=== PATIENT | male | born 1995 ===

== ENCOUNTER 2018-06-29 19:35 | Inpatient (IN) ==
[2018-06-30] MEDS ORDERED: Acetaminophen 325 MG Tablet PO PRN (03:39)
[2018-06-30] MEDS ORDERED: LORazepam 1 MG Tablet PO PRN (03:39)
[2018-06-30] MEDS ORDERED: Aluminum/Magnesium/Simethacone Susp 30 ML UDC PO PRN ×2 (03:39→09:19)
--- NOTE | 2018-06-30 09:28 | P.HPPSY ---
Provisional Diagnosis Admission Date: June 30, 2018 01:15 [place] I.: Adjustment disorder with mixed disturbance of emotion and conduct Competence Certification of Person's Competence To Provide Express and Informed Consent I have personally examined Josh Gibson, a person being served at [facility] on, June 30, 2018 0923. Express and informed consent means consent voluntarily given in writing, by a competent person, after sufficient explanation and disclosure of the subject matter involved to enable the person to make a knowing and willful decision without any element of force, fraud, deceit, duress, or other form of constraint or coercion. This person is 18 years of age or older, is not now known to be incompetent to consent to treatment with a guardian advocate, and does not have a health care surrogate or proxy currently making medical treatment decisions. I have found this person to be one of the following: [xxxx] Competent to provide express and informed consent, as defined above, for voluntary admission to this facility and is competent to provide express and informed consent for treatment. He/she has the consistent capacity to make well reasoned, willful, and knowing decisions concerning his or her medical or mental health treatment. The person fully and consistently understands the purpose of the admission for examination/placement and is fully capable of personally exercising all rights assured under [place] Incompetent to provide express and informed consent to voluntary admission, and this is incompetent to provide express and informed consent to treatment. The person must be transferred to involuntary status and a petition for a guardian advocate filed with the Circuit Court. [] Refusing to provide express and informed consent to voluntary admission but is competent to provide express and informed consent for treatment. The person must be discharged or transferred to involuntary status. Form shall be completed within 24 hours of a person's arrival at the receiving facility and filed in the clinical record of each person: 1. Admitted on a voluntary basis 2. Permitted to provide express and informed consent to his/her own treatment 3. Allowed to transfer from involuntary to voluntary status 4. Prior to permitting a person to consent to his or her own treatment after having been previously found incompetent to consent to treatment. History of Present Illness Capacity: Has capacity History of Present Illness: Patient is a 23-year-old white male initially comes here under Garcia act from [facility]. Patient's Garcia act reviewed dated 06/28/2018 at 1935 hrs. that document reviewed states patient admits to being depressed and having suicidal thoughts with thoughts of setting himself on fire with pumping gas says she thought of getting some bleach and using it to take pills. Patient was seen screen that facility urine toxicology negative blood alcohol level negative. Patient was transferred here under a Garcia act. At the present time patient sitting quietly in his room on 2700 nurse Olivares present throughout session. Patient is a thin tall somewhat disheveled young white male. Gives a history of being from [place] coming down here to [place] within the past year or so it appears to try to make a new start. Is unable to find employment became homeless was trying to go [facility] back towards [facility]. It appears she is found to be very ruminative something of that nature did not want up in snf for 2 days and [facility] did not meet a woman there they drove together towards the [place] they ran out of gasoline.. He panhandles for money they had some gasoline and continued on the way we are not again then the woman decided she wanted to go back with her and the patient was abandoned at a gas station where he made the following statements is as mentioned above was Garcia acted a longer period. At the present time patient sitting quietly in his room on 27 nurse Olivares present throughout session patient alert oriented slender tall somewhat disheveled white male appears about his stated age is 4 somewhat anxious but overall calm and cooperative with me with poor to fair eye contact. He said he was upset by this woman leaving him and made those statements as above but he denied any suicidal homicidal ideation intent or plan said there is a just out of frustration. He acknowledges being from [place] and his father is there he has a 1-year-old baby boy there. He has good relationship with the baby's mother and leisure with the following though neither 1 of them have money to fund him transportation back to [place] which is physical. He denies any alcohol or drug use though he states he has done marijuana in the past. He denies any prior psychiatric contact hospitalization her psychotropic medications. He denies any significant medical or surgical problems he says he went through 10th grade does not have a GED has never had any significant employment. He states that his sister mental health issues in the family is mother was a substance abuser and somewhat depressed. His father did use alcohol. He denies any physical or sexual abuse as a child. At the present stomach feel patient does not meet Garcia act criteria lift the Garcia act. I see no indication for psychotropic medication at this time. Thus we will allow the patient to be discharged to himself. We will discuss with her counselors and discharge planners the possibility of finding funding to help him return to the [facility]. Otherwise we would have to refer him to the homeless coalition - Inpatient Certification I certify that the inpatient services were ordered in accordance with Medicare regulations governing the order. This includes certification that hospital inpatient services are reasonable and necessary and in the case of services not specified as inpatient-only under 42 CFR 419.22(n), that they are appropriately provided as inpatient services in accordance to with the 2-midnight benchmark under 43 CFR 412.3(e) I certify that inpatient psychiatric hospital services are medically necessary. Evaluation and treatment and/or diagnostic testing are expected to improve the patient's condition. The patient needs on a daily basis, active treatment furnished directly by or requiring the supervision of inpatient psychiatric facility personnel. Estimated Total Length of Stay (Days): 1 Plans for Post Hospital Care: Other Review of Systems All other systems reviewed negative except as stated in HPI PMFSH - History History Provided By: Patient - Tobacco History Second Hand Smoke Exposure: Yes Tobacco Use In Past 30 Days: Yes Smoking Status: Current every day smoker Tobacco Type: Cigarettes - Alcohol History How Often Do You Have a Drink Containing Alcohol: Monthly or less - Substance Use History Substance History: No History of Abuse - Substance Use Type Marijuana Route Used: Inhalation Frequency: advises he hasn't smoked in a while Last Used: cant remember Reason for Use: Calm Down - Travel History Recent Travel in the USA Within the Last 8 Weeks: No Recent Travel Out of the Country Within the Last 8 Weeks: No - Immunization History Tetanus Immunization: <5 Years Hx Influenza Vaccine This Season: No Quality Measures - Psychiatric History Psychological trauma history: Patient denies Violence risk to others in the last 6 months: Low Violence risk to self in the last 6 months: Low - Substance Abuse History Drug or alcohol use in the past 12 months: Patient states his used marijuana in the past - Patient Strengths Patient's strengths (minimum of 2): Patient verbal able access healthcare Medications and Allergies Active Medications: Active Medications Acetaminophen (Tylenol) 650 mg PO Q4H PRN PRN Reason: Pain 1-5 or Temp >101F Al Hydrox/Mg Hydrox/Simethicone (Mag-Al Plus Susp Liq) 30 ml PO Q6H PRN PRN Reason: DYSPEPSIA Al Hydrox/Mg Hydrox/Simethicone (Mag-Al Plus Susp Liq) 30 ml PO Q6H PRN PRN Reason: DYSPEPSIA Al Hydroxide/Mg Hydroxide (Milk Of Magnesia Liq) 30 ml PO DAILY PRN PRN Reason: CONSTIPATION Al Hydroxide/Mg Hydroxide (Milk Of Magnesia Liq) 30 ml PO Q12H PRN PRN Reason: Mild Constipation Diphenhydramine HCl (Benadryl) 50 mg PO HS PRN PRN Reason: INSOMNIA Nicotine (Habitrol 21 Mg Patch.24 Hr) 1 patch T-DERMAL DAILY SHU Patch Removal (Remove Old Patch) 1 each T-DERMAL HS SHU Allergies Allergy/AdvReac Type Severity Reaction Status Date / Time No Known Allergies Allergy Unverified 06/30/18 03:30 Exam Vital signs: Vital Signs 06/30/18 01:38 Temperature 97.8 F Pulse Rate 53 L Respiratory Rate 17 Blood Pressure 117/73 Pulse Oximetry 100 Intake & Output 06/29/18 06/30/18 06/30/18 18:59 06:59 18:59 Weight 86.4 kg Other: Weight On Admission 86.4 kg Narrative: Patient seen in his room with staff mentioned above he is in no acute distress, no respiratory distress, no complaints of chest pain no complaints of abdominal pain. Patient moving all 4 extremities without difficulty Mental Status Examination Appearance: Appropriate Consciousness: Alert Orientation: x4 Motor Activity: Normal gait Speech: Unremarkable Language: Adequate Fund of Knowledge: Adequate Attention and Concentration: Other Memory: Unremarkable (Fair) Mood: Other (Euthymic to somewhat restricted) Affect: Other (Slight decreased range and intensity) Thought Process & Associations: Intact Thought Content: Appropriate Hallucination Type: None Delusion Type: None Suicidal Ideation: No Suicidal Plan: No Suicidal Intention: No Homicidal Ideation: No Homicidal Plan: No Homicidal Intention: No Insight: Fair Judgment: Adequate (Fair) Assessment and Plan - Assessment (1) Adjustment disorder with mixed disturbance of emotions and conduct Code(s): F43.25 - Adjustment disorder with mixed disturbance of emotions and conduct Status: Acute - Plan Plan: Estimated LOS: [1 ] days At this time patient does not meet Garcia criteria lift Garcia act patient to be discharged from self, he denies suicidality homicidality voice or visions. Patient is homeless has no funding. He is attempting to return to his family that [facility]. He has his father there is a 1-year-old child and the child's mother. We will attempt to find funding to help him on his way there otherwise we will refer him through to the homeless coalition Justification for Continued Inpatient Stay: Patient to be discharged today Discharge Planning: Discharged from self either to the homeless coalition or if possible finding funding to help with bus trip to [place] Request Healthcare Surrogate/Guardian Advocate?: No
--- NOTE | 2018-06-30 11:00 | P.DSPSY ---
Psychiatry Discharge Summary Inpatient Psychiatric care?: Yes Advance Directives: No Mental Health Advance Directive: No Health Care Proxy: No - Admission Admission Date: June 30, 2018 01:15 - Admission Diagnosis (1) Adjustment disorder with mixed disturbance of emotions and conduct Code(s): F43.25 - Adjustment disorder with mixed disturbance of emotions and conduct Brief History: Patient is a 23-year-old white male initially comes here under Garcia act from [facility]. Patient's Garcia act reviewed dated 06/28/2018 at 1935 hrs. that document reviewed states patient admits to being depressed and having suicidal thoughts with thoughts of setting himself on fire with pumping gas says she thought of getting some bleach and using it to take pills. Patient was seen screen that facility urine toxicology negative blood alcohol level negative. Patient was transferred here under a Garcia act. At the present time patient sitting quietly in his room on 2700 nurse Elise present throughout session. Patient is a thin tall somewhat disheveled young white male. Gives a history of being from [place] coming down here to [place] within the past year or so it appears to try to make a new start. Is unable to find employment became homeless was trying to go from [facility] back towards [facility]. It appears she is found to be very ruminative something of that nature did not want up in penitentiary for 2 days and [facility] did not meet a woman there they drove together towards the [place] they ran out of gasoline.. He panhandles for money they had some gasoline and continued on the way we are not again then the woman decided she wanted to go back with her and the patient was abandoned at a gas station where he made the following statements is as mentioned above was Garcia acted a longer period. At the present time patient sitting quietly in his room on 27 nurse Elise present throughout session patient alert oriented slender tall somewhat disheveled white male appears about his stated age is 4 somewhat anxious but overall calm and cooperative with me with poor to fair eye contact. He said he was upset by this woman leaving him and made those statements as above but he denied any suicidal homicidal ideation intent or plan said there is a just out of frustration. He acknowledges being from [place] and his father is there he has a 1-year-old baby boy there. He has good relationship with the baby's mother and leisure with the following though neither 1 of them have money to fund him transportation back to [place] which is physical. He denies any alcohol or drug use though he states he has done marijuana in the past. He denies any prior psychiatric contact hospitalization her psychotropic medications. He denies any significant medical or surgical problems he says he went through 10th grade does not have a GED has never had any significant employment. He states that his sister mental health issues in the family is mother was a substance abuser and somewhat depressed. His father did use alcohol. He denies any physical or sexual abuse as a child. At the present stomach feel patient does not meet Garcia act criteria lift the Garcia act. I see no indication for psychotropic medication at this time. Thus we will allow the patient to be discharged to himself. We will discuss with her counselors and discharge planners the possibility of finding funding to help him return to the [facility]. Otherwise we would have to refer him to the homeless coalition Tobacco Use In Past 30 Days: Yes How Often Do You Have a Drink Containing Alcohol: Monthly or less Hospital Course: Please see above dictation under brief history. Patient does not meet Garcia criteria will lift Garcia act. Patient denies suicidality homicidality voice or visions. Is able contract to do no harm. Patient to be discharged to himself. It appears [employer] will be able to assist this man and getting transportation back to his home in [facility] his father will be able to meet him at the destination. - Discharge Discharge Date: 06/30/18 - Discharge Diagnosis (1) Adjustment disorder with mixed disturbance of emotions and conduct Code(s): F43.25 - Adjustment disorder with mixed disturbance of emotions and conduct Status: Acute Discharge Disposition: Home - Discharge Instructions Discharge Diet: Regular Diet Activities You Can Perform: Regular- No Restrictions - Discharge Time > 30 minutes Mental Status Examination Appearance: Appropriate Consciousness: Alert Orientation: x4 Motor Activity: Normal gait Speech: Unremarkable Language: Adequate Fund of Knowledge: Adequate Attention and Concentration: Other Memory: Unremarkable (Fair) Mood: Other (Euthymic to somewhat restricted) Affect: Other (Slight decreased range and intensity) Thought Process & Associations: Intact Thought Content: Appropriate Hallucination Type: None Delusion Type: None Suicidal Ideation: No Suicidal Plan: No Suicidal Intention: No Homicidal Ideation: No Homicidal Plan: No Homicidal Intention: No Insight: Fair Judgment: Adequate (Fair) Discharge/Advance Care Plan - Results Vital Signs: Last Vital Signs Temp 97.8 F 06/30/18 01:38 Pulse 53 L 06/30/18 01:38 Resp 17 06/30/18 01:38 BP 117/73 06/30/18 01:38 Pulse Ox 100 06/30/18 01:38 Lab Results: Negative urine toxicology negative alcohol level done at [facility] Summary of Procedures: None done Pending Results: None - Medications Number of antipsychotic medications at discharge: 0 - Discharge Care Plan Goals to Promote Your Health: * To prevent worsening of your condition and complications * To maintain your health at the optimal level Directions to Meet Your Goals: Take your medications as prescribed Follow your dietary instruction Follow activity as directed Keep your appointments as scheduled Take your immunizations and boosters as scheduled If your symptoms worsen call your PCP, if no PCP go to Urgent Care Center or Emergency Room For 31/05 questions related to your inpatient stay or results of tests pending at discharge, please contact Dr. Gilbert Urena MD at Smoking is Dangerous to Your Health. Avoid second hand smoking
== END 2018-06-30 14:00 | disposition home or self-care (01) ==
LOC: H270 06-30 01:15
PROVIDERS: ADMIT Psychiatry & Neurology Psychiatry; ATTEND Psychiatry & Neurology Psychiatry